=== PATIENT | female | born 1930 | race Caucasian/White ===

== ENCOUNTER 2017-10-30 08:51 | Day surgery (SDC) | payer MEDICARE, BC ==
[~2017-10-30 08:51] MED LIST: Lactated Ringers 1,000 ML IV SCH; Lidocaine 1%/Sod Bicarbonate in NS 8.4% 1 ML Syringe IDERM PRN; Sodium Chloride 0.9% 10 ML Syringe FLUSH PRN
[2017-10-30] MEDS ORDERED: Lidocaine 1% with EPINEPHrine 1:100,000 20 ML MDV ONE (09:33)
--- NOTE | 2017-10-30 09:56 | PCM.PREANE ---
Preanesthetic Assessment - Anesthesia/Transfusion/Family Hx Anesthesia History: Prior Anesthesia Reaction (in cardiac cath decompensated and had CPR to bring her back aprox. 2015) Family History of Anesthesia Reaction: No Transfusion History: No Prior Transfusion(s) - Review of Systems General: No Symptoms Pulmonary: No Symptoms, Other (at times "gets small left plural effusiions") Cardiovascular: No Symptoms, Dyspnea on Exertion Gastrointestinal: No Symptoms Neurological: No Symptoms Other: Reports: Easy Bleeding (on plavix and ASA held this AM), Easy Bruising, Diabetes (last BS 171 this AM 07:30), Thyroid Problems (hypothyroid) - Physical Assessment NPO Status Date: 10/29/17 NPO Status Time: 18:30 Pulse: 74 O2 Sat by Pulse Oximetry: 91 Respiratory Rate: 16 Blood Pressure: 139/71 Temperature: 36.9 C Vital Signs: Last Vital Signs Temp 36.9 C 10/30/17 09:05 Pulse 74 10/30/17 09:05 Resp 16 10/30/17 09:05 BP 139/71 10/30/17 09:05 Pulse Ox 91 L 10/30/17 09:05 Height: 1.73 m Weight: 61.689 kg ASA Class: 4 Mental Status: Alert & Oriented x3 Airway Class: Mallampati = 1 Dentition: Reports: Partial (top) Thyro-Mental Finger Breadths: 3 Mouth Opening Finger Breadths: 2 ROM/Head Extension: Full Lungs: Clear to Auscultation, Normal Respiratory Effort, Decreased Breath Sounds (left lower lobe) Cardiovascular: Regular Rate, Regular Rhythm, Irregular Rhythm (sinus irregular) - Lab Values: on chart - Imaging/EKG Impressions: 08/14/2017 EKG HR 77 SR incomplete left bundle branch block - Allergies Allergies/Adverse Reactions: Allergies Allergy/AdvReac Type Severity Reaction Status Date / Time pseudoephedrine Allergy Chest Verified 06/26/15 11:02 Tightness - Blood Blood Available: No Product(s) Available: None - Anesthesia Plan Pre-Op Medication Ordered: None - Acknowledgements Anesthesia Type Planned: MAC (Local) Pt an Appropriate Candidate for the Planned Anesthesia: Yes Alternatives and Risks of Anesthesia Discussed w Pt/Guardian: Yes Pt/Guardian Understands and Agrees with Anesthesia Plan: Yes PreAnesthesia Questionnaire HEENT History: Reports: Hard of Hearing, Impaired Vision, Otitis Media Cardiovascular History: Reports: CAD, High Cholesterol, Hypertension, [place] ( silent [place] some time in past but not sure when it happened), PVD Respiratory History: Reports: Other (See Below) Other Respiratory History: Bronchitis [employer] History: Reports: Musculoskeletal History: Reports: Fracture Endocrine/Metabolic History: Reports: Diabetes, Type I - Past Surgical History HEENT Surgical History: Reports: Cataract Surgery Musculoskeletal Surgical History: Reports: Other (See Below) Other Musculoskeletal Surgeries/Procedures:: hip surgery in 1991; titanium in left hip. Oncologic Surgical History: Reports: Other (See Below) Other Oncologic Surgeries/Procedures: malignant lesion removed from right hand Dermatological Surgical History: Reports: Skin Biopsy - SUBSTANCE USE Smoking Status *Q: Never Smoker Tobacco Use Within Last Twelve Months: No Second Hand Smoke Exposure: No Days Per Week of Alcohol Use: 0 Number of Drinks Per Day: 0 Total Drinks Per Week: 0 Recreational Drug Use History: No - HOME MEDS Home Medications: Home Meds Aspirin 81 mg CHEW DAILY 06/26/15 [History] Calcium Carb/Vit D3/Minerals [Calcium 600+D Plus Minerals] 1 tab PO DAILY [History] Ferrous Sulfate 1 tab PO DAILY 06/26/15 [History] Furosemide 40 mg PO BID 06/26/15 [History] Insulin Glarg,Human.Rec.Analog [Lantus] 0 units SQ BEDTIME 06/26/15 [History] Insulin Lispro [Humalog] 7 units SQ TID 06/26/15 [History] Levothyroxine [Synthroid] 125 mcg PO DAILY 06/26/15 [History] Meloxicam 7.5 mg PO DAILY #5 tablet 06/26/15 [Rx] Neomycin/Polymyxin B Sulf/HC [Eoqibdff-Cdauemxqa-Bt Ear Susp] 1 drop EARLF TID 06/26/15 [History] atorvaSTATin [Lipitor] 20 mg PO DAILY 06/26/15 [History] Carvedilol [Coreg] 25 mg PO DAILY 10/30/17 [History] Clopidogrel [Plavix] 75 mg PO DAILY 10/30/17 [History] - CURRENT (IN HOUSE) MEDS Current Meds: Current Medications Lactated Ringer's (Ringers, Lactated) 1,000 mls @ 125 mls/hr IV ASDIRECTED SHREYAS Stop: 10/30/17 23:00 Last Admin: 10/30/17 09:15 Dose: 125 mls/hr Lidocaine/Sodium Bicarbonate (Buffered Lidocaine 1% In Ns 8.4%) 0.25 ml IDERM ONETIME PRN PRN Reason: Prior to IV Start Stop: 10/30/17 18:00 Last Admin: 10/30/17 09:15 Dose: 0.25 ml Sodium Chloride (Saline Flush) 10 ml FLUSH ASDIRECTED PRN PRN Reason: Keep Vein Open Stop: 10/30/17 18:00 Discontinued Medications Lidocaine/Epinephrine (Xylocaine 1% With Epinephrine 1:100,000) Confirm Administered Dose 20 ml .ROUTE .STK-MED ONE Stop: 10/30/17 09:34
[2017-10-30] MEDS ORDERED: Ketamine 500 mg/10 ML MDV ONE (10:08)
[2017-10-30] MEDS ORDERED: Midazolam 1 MG/ML 2 ML SDV ONE (10:08)
--- NOTE | 2017-10-30 12:09 | PCM.OPNOTE ---
- General Post-Op/Procedure Note Date of Surgery/Procedure: 10/30/17 Operative Procedure(s): excision of SCC of the left cheek and seborrheic keratosis left cheek with layered closure Pre Op Diagnosis: scc of the left cheek and seborrhiec karatosis left cheek Post-Op Diagnosis: Same Anesthesia Technique: MAC Primary Surgeon: Alex Goodrich EBL in mLs: 8 Complications: None Condition: Good
[2017-10-30 12:10] VITALS: BP 165/77
--- NOTE | 2017-10-30 12:11 | PCM48HPAN ---
Post Anesthesia Note - EVALUATION WITHIN 48HRS OF ANESTHETIC Vital Signs in Normal Range: Yes Patient Participated in Evaluation: Yes Respiratory Function Stable: Yes Airway Patent: Yes Cardiovascular Function Stable: Yes Hydration Status Stable: Yes Pain Control Satisfactory: Yes Nausea and Vomiting Control Satisfactory: Yes Mental Status Recovered: Yes
--- NOTE | 2017-10-31 08:28 | OR ---
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 OPERATION PERFORMED: Excision of seborrheic keratosis and squamous cell carcinoma with layered closure. ANESTHESIA: Done under IV sedation, local anesthetic 1% Xylocaine with epinephrine. DESCRIPTION OF PROCEDURE: The patient was taken to the operating room, placed in a supine position, connected to monitoring equipment, and given a small amount of IV sedation. The area in question was identified by the ivette and prepped with Betadine, draped off in a sterile fashion. A squamous cell carcinoma incision was traced to perform in ellipse with visual margins and seborrheic keratosis just below this on the lower end of the incision was also traced. Both were measured and then anesthetized with 1% Xylocaine with epinephrine. The squamous cell carcinoma was excised and sent to pathology. Deep margins were visually managed. Bleeding points were clamped and tied with suture ligature of 5-0 Vicryl suture. Skin edges undermined and then brought together with interrupted 3-0 Vicryl suture. Burow's triangle was taken off in the lower end of the incision, which included the seborrheic keratosis and this was sent to pathology. This was removed because it was ulcerating. Deep tissue was brought together with 3-0 Vicryl suture and 5-0 Vicryl suture and the skin closed with interrupted 4-0 Prolene and 5-0 Prolene suture. Sterile dressing placed. The patient tolerated the procedure and sent to recovery room in a stable condition, and will be followed up in the clinic. ESTIMATED BLOOD LOSS: Approximately 8 mL. MMODAL /[id number]
== END 2017-10-30 12:44 | disposition home or self-care (01) ==
LOC: JD.SDS 08:51
PROVIDERS: ATTEND Surgery
DX: C44.329 Squamous cell carcinoma of skin of other parts of face (principal); L82.1 Other seborrheic keratosis; I25.10 Atherosclerotic heart disease of native coronary artery without angina pectoris; E78.5 Hyperlipidemia, unspecified; I13.0 Hypertensive heart and chronic kidney disease with heart failure and stage 1 through stage 4 chronic kidney disease, or unspecified chronic kidney disease; E10.22 Type 1 diabetes mellitus with diabetic chronic kidney disease; N18.3 Chronic kidney disease, stage 3 (moderate); I50.20 Unspecified systolic (congestive) heart failure; E07.9 Disorder of thyroid, unspecified; I25.5 Ischemic cardiomyopathy; E10.51 Type 1 diabetes mellitus with diabetic peripheral angiopathy without gangrene; I25.2 Old myocardial infarction; Z79.02 Long term (current) use of antithrombotics/antiplatelets; Z79.82 Long term (current) use of aspirin; Z79.899 Other long term (current) drug therapy; Z88.8 Allergy status to other drugs, medicaments and biological substances
CPT/HCPCS: 11444; 11646; 13132; 13133; 82962; 88305; J7120; 00300; J2250